=== PATIENT | female | born 1950 ===

== ENCOUNTER 2017-01-24 17:11 | Emergency (ER) | payer MEDICARE ==
--- NOTE | 2017-01-24 18:38 | C.PDOC ---
History Of Present Illness 66 y/o female, history of Lupus, brought to emergency department by son who reports patient has had intermittent episodes of chest pain for 2-3 weeks. Son also reports non-productive, though wet-sounding, hacking cough and associated mild shortness of breath. Patient also with frontal headache, gradually onset, associated with some blurry vision. Son notes the headache resolved this AM but patient was left feeling lightheaded and dizzy. Son also reports the patient's cheeks seem red but denies fever. Time Seen by Provider: 01/24/17 18:24 Chief Complaint (Nursing): Chest Pain History Per: Family (pt's son provides translation ) History/Exam Limitations: no limitations Onset/Duration Of Symptoms: Days, Intermittent Episodes, Gradual Current Symptoms Are (Timing): Still Present Associated Symptoms: denies: Diaphoresis Recent travel outside of the [place]: No Past Medical History Reviewed: Historical Data, Nursing Documentation, Vital Signs Vital Signs: Last Vital Signs Temp 98.1 F 01/24/17 17:29 Pulse 83 01/24/17 19:00 Resp 16 01/24/17 19:00 BP 154/95 H 01/24/17 19:00 Pulse Ox 100 01/24/17 19:00 - Medical History PMH: HTN, Hypercholesterolemia Family History: States: Unknown Family Hx - Social History Hx Alcohol Use: No Hx Substance Use: No - Immunization History Hx Tetanus Toxoid Vaccination: No Hx Influenza Vaccination: Yes Hx Pneumococcal Vaccination: No Review Of Systems Except As Marked, All Systems Reviewed And Found Negative. Constitutional: Negative for: Fever, Chills Cardiovascular: Positive for: Chest Pain. Negative for: Palpitations Respiratory: Positive for: Cough, Shortness of Breath. Negative for: Sputum, Wheezing Gastrointestinal: Negative for: Vomiting Skin: Negative for: Rash Neurological: Positive for: Headache (resolved), Dizziness Physical Exam - Physical Exam Appears: Non-toxic, No Acute Distress Skin: Warm, Dry Head: Atraumatic, Normacephalic Oral Mucosa: Moist Chest: Symmetrical Cardiovascular: Rhythm Regular Respiratory: No Rales, Rhonchi (coarse), No Wheezing Gastrointestinal/Abdominal: Soft, No Tenderness, No Guarding, No Rebound Back: Normal Inspection Extremity: Normal ROM, Capillary Refill (< 2 sec. ) Neurological/Psych: Oriented x3, Normal Speech, Normal Cognition ED Course And Treatment - Laboratory Results Result Diagrams: 01/24/17 18:53 01/24/17 18:53 Lab Interpretation: Normal ECG: Interpreted By Me ECG Rhythm: Sinus Rhythm, ST/T Changes (nonspecific) ECG Interpretation: Abnormal O2 Sat by Pulse Oximetry: 99 Pulse Ox Interpretation: Normal (RA) - Radiology CXR: Interpreted by Me CXR Interpretation: Yes: No Acute Disease Progress Note: EKG, CXR, bloodwork ordered. Reevaluation Time: 21:14 Reassessment Condition: Improved (Patient feels comfortable and is requesting discharge.) Disposition Counseled Patient/Family Regarding: Studies Performed, Diagnosis, Need For Followup - Disposition Referrals: Sammy Valle DO [Staff Provider] - Disposition: HOME/ ROUTINE Disposition Time: 21:17 Condition: IMPROVED Additional Instructions: Follow up with your Lupus doctor as well. Try taking OTC antacids if she feels any symptoms of reflux or gas. Instructions: Noncardiac Chest Pain (ED) Forms: [employer] (Swedish) Print Language: ARABIC - Clinical Impression Clinical Impression: Chest pain - Scribe Statement The provider has reviewed the documentation as recorded by the Scribdidi Parnell All medical record entries made by the Scribdidi were at my direction and personally dictated by me. I have reviewed the chart and agree that the record accurately reflects my personal performance of the history, physical exam, medical decision making, and the department course for this patient. I have also personally directed, reviewed, and agree with the discharge instructions and disposition.
[2017-01-24 18:56] LABS: BASO # 0.1 K/uL (0.0-0.2); BASO % 0.7 % (0.0-2.0); EOS # 0.1 K/uL (0.0-0.7); LYMPH # 1.2 K/uL (1.0-4.3); LYMPH % 15.2 % (20.0-40.0); MEAN CELL VOLUME 86.5 fL (81.0-99.0); MEAN CORPUSCULAR HEMOGLOBIN 29.6 pg (27.0-31.0); MEAN CORPUSCULAR HGB CONC 34.2 g/dL (33.0-37.0); MEAN PLATELET VOLUME 7.8 fL (7.2-11.7); MONO # 0.5 K/uL (0.0-0.8); MONO % 6.9 % (0.0-10.0); RED CELL DISTRIBUTION WIDTH 14.1 % (11.5-14.5); WHITE BLOOD COUNT 7.8 K/uL (4.8-10.8)
[2017-01-24 19:05] LABS: CHLORIDE 100 mmol/L (98-107)
[2017-01-24 19:06] LABS: POTASSIUM 3.8 mmol/L (3.6-5.2); SODIUM 141 mmol/L (132-148)
[2017-01-24 19:08] LABS: ALB/GLOB RATIO 1.3 (1.0-2.1); ALKALINE PHOSPHATASE 48 U/L (38-126); AST/SGOT 25 U/L (14-36); BILIRUBIN,TOTAL 0.6 mg/dL (0.2-1.3); BLOOD UREA NITROGEN 15 mg/dL (7-17); CARBON DIOXIDE 26 mmol/L (22-30); GFR AFRICAN-AMERICAN > 60; TOTAL PROTEIN 7.5 g/dL (6.3-8.3)
[2017-01-24 19:09] LABS: ALT/SGPT 31 U/L (9-52); CALCIUM 8.8 mg/dl (8.6-10.4); GLUCOSE,RANDOM 101 mg/dL (65-105)
[2017-01-24 21:34] VITALS: BP 144/78; PULSE 76; RESP 18; TEMP 98.5; O2SAT 98
--- NOTE | 2017-01-25 07:46 | RAD ---
PROCEDURE: CHEST RADIOGRAPH, 1 VIEW HISTORY: chest pain COMPARISON: None available. FINDINGS: LUNGS: Diffuse increased interstitial lung markings which may represent underlying edema and or infiltrate. Clinical correlation. Right hilar prominence. PLEURA: No pneumothorax or pleural fluid seen. CARDIOVASCULAR: Normal. OSSEOUS STRUCTURES: No significant abnormalities. VISUALIZED UPPER ABDOMEN: Normal. OTHER FINDINGS: None. IMPRESSION: Diffuse increased interstitial lung markings which may represent underlying edema and or infiltrate. Clinical correlation. Right hilar prominence.
--- NOTE | 2017-02-04 09:05 | CARD ---
APPROVED REPORT EKG Measurement Heart [id number] <Conclusion> Normal sinus rhythm Nonspecific ST abnormality Abnormal ECG
== END 2017-01-24 21:35 | disposition home or self-care (01) ==
LOC: C.ER 17:11
DX: R07.9 Chest pain, unspecified (principal)